=== PATIENT | female | born 1965 | race African-American/Black ===

== ENCOUNTER 2021-03-28 20:39 | Emergency (ER) | payer MEDICARE ==
[~2021-03-28] VITALS: Ht 172.7 cm; Wt 172.0 kg
[~2021-03-28 20:39] MED LIST: DURAGESIC75 MCG/H1 TD; FLEXERIL5 MG PO; LORTAB 7.5 PO; LORTAB5 PO; MEDDOSEPAK PO; MEDROL4 M1 PO; NAPROSYN500 MG PO; NO HOME MEDS; PENICILLN VK500 MG OR; PERCOCET1 TA4 PO; TRAMADOL HCL50 MG OR; VOLTAREN1 % EX
[2021-03-28 21:14] LABS: HEMOGLOBIN 12.9 g/dl (12.0-16.0); IMMATURE GRANULOCYTES 0.9 % (0.0-5.0); MEAN CORPUSCULAR HGB CONC 30.7 g/dL CAL (32.0-36.0); NEUT# 4.72 thou/uL (2.00-7.15); RED BLOOD COUNT 4.16 mill/uL (4.20-5.60); RED CELL DISTRI WIDTH 15.6 % (11.5-15.5)
[2021-03-28 21:31] LABS: ALKALINE PHOSPHATASE 119 u/l (38-126); BUN 12 mg/dL (7-17); BUN/CREATININE RATIO 17 (12-20 (CALC)); CARBON DIOXIDE 29 mmol/l (22-30); CHLORIDE 95 mmol/l (95-108); CREATININE 0.7 mg/dL (0.5-1.0); ETHYL ALCOHOL 114 mg/dl (0-30); GFR > 60 ML/MIN (>=60 (CALC)); GFR FOR AFR.AMER. > 60 ML/MIN (>=60 (CALC)); SGOT/AST 56 u/l (14-36); SODIUM 139 mmol/l (137-146); TOTAL PROTEIN 8.3 g/dL (6.3-8.2)
[2021-03-28 21:33] LABS: ANION GAP 18 (6-22 (CALC)); BILIRUBIN, TOTAL 1.8 mg/dL (0.0-1.4); POTASSIUM 3.2 mmol/l (3.5-5.1)
[2021-03-28 21:44] LABS: MYOGLOBIN 24 ng/mL (0 - 62)
[2021-03-28] MEDS ORDERED: AMLODIPINE BESY10 MG PO (22:13)
[2021-03-28] MEDS ORDERED: ASPIRIN81 MG PO (22:14)
[2021-03-28] MEDS ORDERED: METOPROL TAR25 MG PO (22:14)
[2021-03-28] MEDS ORDERED: OXYCODONE30 MG PO (22:14)
[2021-03-28 23:21] LABS: URINE BILIRUBIN - DIPSTICK NEGATIVE (NEGATIVE); URINE BLOOD DIPSTICK NEGATIVE (NEGATIVE); URINE COLOR YELLOW; URINE GLUCOSE - DIPSTICK NEGATIVE (NEGATIVE); URINE KETONE NEGATIVE (NEGATIVE); URINE LEUK ESTERASE NEGATIVE (NEGATIVE); URINE PROTEIN - DIPSTICK NEGATIVE (NEG-TRACE)
[2021-03-28 23:30] LABS: URINE NITRITE - DIPSTICK NEGATIVE (Negative)
[2021-03-29 05:06] VITALS: BP 157/85
== END 2021-03-29 05:00 | disposition short-term general hospital (02) ==
LOC: ED 20:39
PROVIDERS: Emergency Medicine
DX: F10.10 Alcohol abuse, uncomplicated (principal); R22.1 Localized swelling, mass and lump, neck; R09.02 Hypoxemia; K21.9 Gastro-esophageal reflux disease without esophagitis; E66.9 Obesity, unspecified; Z98.84 Bariatric surgery status; Z91.041 Radiographic dye allergy status; Z20.822 Contact with and (suspected) exposure to COVID-19

== ENCOUNTER 2022-05-04 11:30 | Emergency (ER) | payer MEDICARE ==
[2022-05-04] VITALS (7 sets, daily range): BP systolic 124–152; BP diastolic 80–95
[~2022-05-04] VITALS: Ht 172.7 cm; Wt 156.4 kg
[~2022-05-04 11:30] MED LIST changes: +AMLODIPINE BESY10 MG PO; +ASPIRIN81 MG PO; +METOPROL TAR25 MG PO; +OXYCODONE30 MG PO
[2022-05-04] MEDS ORDERED: HYDROCO/APAP1 TA9 PO (13:37)
== END 2022-05-04 15:11 | disposition home or self-care (01) ==
LOC: ED 11:30
PROC: 2W3QX1Z Immobilization of Right Lower Leg using Splint (ICD-10-PCS; principal; 2022-05-04)
DX: S82.64XA Nondisplaced fracture of lateral malleolus of right fibula, initial encounter for closed fracture (principal); K21.9 Gastro-esophageal reflux disease without esophagitis; E66.9 Obesity, unspecified; W18.39XA Other fall on same level, initial encounter; Y93.89 Activity, other specified; Y92.410 Unspecified street and highway as the place of occurrence of the external cause; Z98.84 Bariatric surgery status

== ENCOUNTER 2023-12-04 11:32 | Emergency (ER) | payer MEDICARE ==
[~2023-12-04 11:32] MED LIST changes: +EPINEPHrine HCL 0.1 MG/ML 10 ML SYR IV ONE; +HYDROCO/APAP1 TA9 PO; +SODIUM CHLORIDE 0.9% 1,000 ML BAG IV ONE
== END 2023-12-04 13:42 | disposition expired ==
LOC: ED 11:32
PROC: 5A1221J Performance of Cardiac Output, Continuous, Automated (ICD-10-PCS; principal; 2023-12-04)
DX: I46.9 Cardiac arrest, cause unspecified (principal); K21.9 Gastro-esophageal reflux disease without esophagitis; E66.9 Obesity, unspecified; Z98.84 Bariatric surgery status; Z94.4 Liver transplant status